=== PATIENT | female | born 2005 | race American Indian/Alaskan Native ===

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

== ENCOUNTER → 2025-03-19 | Outpatient (CLI) | payer OTHER ==
[~2025-03-19] MED LIST changes: +Clindamycin HC150 MG PO; +Percocet 5-3251 EACH PO
== END | disposition home or self-care (01) ==
LOC: LAB SHORT 18:15 → LAB 18:15
DX: Z32.01 Encounter for pregnancy test, result positive (principal)
CPT/HCPCS: 84702